=== PATIENT | male | born 1965 | race Caucasian/White ===

== ENCOUNTER → 2024-04-22 07:42 | Outpatient (REF) | payer BC, SELFPAY | LOC: RAD 07:42 | PROVIDERS: ATTENDING PHYSICIAN Family Medicine | DX: M54.50 Low back pain, unspecified (principal); M25.552 Pain in left hip | CPT/HCPCS: 72110; 73502 ==

== ENCOUNTER → 2024-06-11 17:55 | Outpatient (REF) | payer BC, SELFPAY | LOC: PAVMRI 17:55 | PROVIDERS: ATTENDING PHYSICIAN Family Medicine | DX: M25.552 Pain in left hip (principal); M54.50 Low back pain, unspecified | CPT/HCPCS: 72148; 73721 ==